=== PATIENT | female | born 1945 | race American Indian/Alaskan Native ===

== ENCOUNTER → 2024-09-11 | Outpatient (CLI) | payer MEDICARE, OTHER, SELFPAY ==
[2024-09-11 09:22] LABS: Basophils # (Auto) 0.1 Thou/mm3 (0.0-0.2); Basophils % (Auto) 1 % (0-2.5); Eosinophils # (Auto) 0.2 Thou/mm3 (0.0-0.5); Eosinophils % (Auto) 2 % (0-10); Hematocrit 35.3 % (36.0-46.0); Hemoglobin 11.3 g/dL (12.0-16.0); Immature Granulocytes % (Auto) 0 % (0-0); Immature Granulocytes Auto 0.02 Thou/mm3 (0.00-0.00); Lymphocytes # (Auto) 1.3 Thou/mm3 (1.0-4.8); Lymphocytes % (Auto) 18 % (10-50); Mean Corpuscular Hemoglobin 28.3 pg (25.0-35.0); Mean Corpuscular Volume 89 fL (80-100); Monocytes # (Auto) 0.6 Thou/mm3 (0.0-0.8); Monocytes % (Auto) 9 % (0-12); Neutrophils % (Auto) 70 % (37-80); Nucleated Red Blood Cell % 0 /100 WBC (0); Platelet Count 212 Thou/mm3 (140-440); RDW Standard Deviation 41.1 fL (36.4-46.3); Red Blood Count 3.99 Miln/mm3 (4.00-5.20); White Blood Count 7.2 Thou/mm3 (3.6-11.0)
[2024-09-11 09:29] LABS: Alanine Aminotransferase 9 U/L (10-49); Albumin, Serum 4.2 gm/dL (3.4-4.8); Albumin/Globulin Ratio 1.8 (1.2-2.2); Alkaline Phosphatase 70 U/L (46-116); Anion Gap 9 (7-16); Aspartate Amino Transferase 20 U/L (0-34); BUN/Creatinine Ratio 19 Ratio (12-20); Bilirubin,Total 0.6 mg/dL (0.3-1.2); Blood Urea Nitrogen 15 mg/dL (9-23); Calcium 9.5 mg/dL (8.3-10.6); Calcium (Corrected) 9.5 mg/dL (8.5-10.1); Carbon Dioxide 28.5 mMol/L (20.0-31.0); Chloride 106 mMol/L (98-107); Creatinine (Component) 0.8 mg/dL (0.6-1.3); Globulin 2.3 gm/dL (2.3-3.5); Glucose 136 mg/dL (74-106); Osmolality,Calculated 287 (275-295); Potassium 4.4 mMol/L (3.4-5.1); Sodium 143 mMol/L (136-145); Total Protein 6.5 gm/dL (5.7-8.2); eGFR > 60 See Note
[2024-09-11 09:31] LABS: Carcinoembryonic Antigen 4.1 ng/mL (0.0-5.0)
== END | disposition home or self-care (01) ==
LOC: SCTO 08:11
PROVIDERS: PCP Physician Assistant; Referring Provider Nurse Practitioner Family; Visit Provider Nurse Practitioner Family
DX: C34.11 Malignant neoplasm of upper lobe, right bronchus or lung (principal)
CPT/HCPCS: 36415; 80053; 82378; 85025

== ENCOUNTER 2024-09-13 14:54 | Outpatient (RCR) | payer MEDICARE, OTHER, SELFPAY ==
--- NOTE | 2024-09-14 09:31 | CTCFLWUP_ITS ---
Patient: MULU GRIMES : 1945 Page 2 of 2 FOLLOW UP NOTE DATE OF SERVICE: 09/13/2024 NAME: MULU GRIMES ACCOUNT: [id number] : 1945 AGE: 79 INTERVAL HISTORY: ONCOLOGY HISTORY: DIAGNOSIS: Malignant neoplasm of upper lobe, right bronchus or lung [ICD10] C34.11 DATE OF DIAGNOSIS: STAGE/TNM: TREATMENT HISTORY: Care?Plan Start?Date Cycle Day Intent HISTORY OF PRESENT ILLNESS: Mulu Grimes is a 79-year-old ENG speaking female has the following oncology history. 09/16/2017: Urine cytology was highly suspicious for malignancy, compatible with urothelial origin. 10/18/2017: Bladder biopsy showed papillary urothelial neoplasm. 10/20/2017: Transurethral resection of the bladder tumor showed papillary urothelial carcinoma. Patient was treated with BCG. 03/08/2019: CT scan of the right shoulder without contrast patient was planning on having revision arthroplasty in [place]. A CT scan repeated prior to the procedure showed a lung nodule in the right lung. I do not have the report of the CT scan. 05/03/2020: PET CT scan? 05/22/2020: Patient was seen by Dr. Ramirez Chahal, radiation oncologist in consultation. 06/04/2020: CT-guided biopsy of the right upper lobe lung nodule? 09/04/2020: Ms. Grimes had right upper lobe lobectomy? 12/18/2020: CT scan of the chest with IV contrast? 07/02/2021: CT scan of the chest with IV contrast? 08/27/2022: CT scan of the chest without contrast? 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 amlodipine - 5 mg 1 tab Twice a Day 2. atorvastatin - 10 mg Daily 3. carvedilol - 25 mg 1 tab As directed 4. carvedilol - 12.5 mg 1 tab Twice a Day 5. clopidogrel - 75 mg Daily 6. hydrochlorothiazide - 25 mg 1 tab Each Day 7. lisinopril - 40 mg 1 tab Twice a Day 8. metformin - 1,000 mg Twice a Day 9. nitroglycerin - 0.4 mg As directed 10. Ocuvite - 1 tab Daily 11. Tylenol Arthritis - 650 mg 1 tab As directed 12. Vitamin D2 - 25,000 unit 1 Capsule Weekly Medications Last Reconciled by Leigh Omer MA on 09/13/2024 ALLERGIES: ASPIRIN/CAFFEINE; PENICILLAMINE; naproxen; sulfasalazine; gabapentin; celecoxib; TRIMETHOP RIM; milk; bee wasp; rimegepant sulfate; rimegepant sulfate; VANCOMYCIN HCL; VANCOMYCIN HCL; warfarin REVIEW OF SYSTEMS: A complete 14-point review of systems was performed and is negative except as noted in interval histo ry. PHYSICAL EXAMINATION: VITAL SIGNS: Temperature?97.6, B/P?166/71, Oxygen?Saturation?95% Weight?179?lbs PAIN: 0 - No pain ECOG Performance Status: 0 - Asymptomatic and fully active GENERAL APPEARANCE: Appears well, in no apparent distress, appropriately interactive. HEENT: Normocephalic, no temporal wasting, normal conjunctiva, no scleral icterus, normal hearing, li ps without lesions, neck normal range of motion. CARDIOVASCULAR: Not assessed. PULMONARY: Normal respiratory effort, no respiratory distress or use of accessory muscles, speaking i n full sentences, no tachypnea. EXTREMITIES: No pedal edema or cyanosis. SKIN: Normal skin appearance. NEUROLOGIC: Alert and oriented x4. PSHYCHIATRIC: Appropriate affect, mood normal, behavior normal, intact thought and speech. 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 S/p r ight upper lobe lobectomy on 09/04/2020. 05/30/[address] scan had shown multiple hypermetabolic areas in the liver which may be technical, re commend CT scan abdomen pelvis post intravenous contrast with specific attention to the liver. CT sca n 06/26/2024 reviewed and showed no liver lesions. Common bile duct 15 mm. Patient have a history of gallbladder removal. No clinical signs or symptoms Patient is doing clinically well Will do another CT scan in 6 months COPD. Stopped smoking in 2002. ? Coronary artery disease status post coronary artery stent placement x2. ? History of papillary urothelial carcinoma treated with TURBT as well as BCG. ? History of right shoulder surgery in the past. Currently patient is planning on having repeat surg misty. #2 anemia Patient have progressive anemia Not clear history regarding stools Patient denies all signs and symptoms Will check for causes of anemia including bleeding from the colon or upper GI tract CBC CMP iron panel CEA ferritin CT scan chest abdomen pelvis GI referral for colonoscopy and EGD RETURN TO CLINIC: 4 to 6 weeks for review of labs BILLING AND COMPLIANCE: I reviewed external records from providers outside my specialty as summarized above. I spent a total of 50 minutes on this patient?s care on the day of their visit excluding time spent related to any bi lled procedures. This time includes time spent with the patient as well as time spent documenting in the medical record, reviewing patients records and tests, obtaining history, placing orders, communi cating with other healthcare professionals, counseling the patient, family or caregiver, and/or care coordination for the diagnoses above. Electronically Signed by: Jake Cope MD T: 9:29 AM CC: PCP: Andrés Barber Referring: Andrés Barber This document was completed utilizing speech recognition software. Grammatical errors, random word in sertions, pronoun errors, and incomplete sentences are an occasional consequence of this system due t o software limitations, ambient noise, and hardware issues. Any formal questions or concerns about th e content, text or information contained within the body of this dictation should be directly address ed to the provider for clarification.
== END 2024-09-22 23:59 | disposition home or self-care (01) ==
LOC: SCTC 14:54
PROVIDERS: PCP Physician Assistant; Referring Provider Physician Assistant; Visit Provider Internal Medicine Hematology & Oncology
DX: C34.11 Malignant neoplasm of upper lobe, right bronchus or lung (principal); Z90.2 Acquired absence of lung [part of]; J44.9 Chronic obstructive pulmonary disease, unspecified; Z87.891 Personal history of nicotine dependence; I25.10 Atherosclerotic heart disease of native coronary artery without angina pectoris; Z95.5 Presence of coronary angioplasty implant and graft; Z85.51 Personal history of malignant neoplasm of bladder; D64.9 Anemia, unspecified
CPT/HCPCS: 99212; G0463

== ENCOUNTER → 2024-09-14 | Outpatient (CLI) | payer MEDICARE, OTHER, SELFPAY ==
[2024-09-14 08:45] LABS: Basophils # (Auto) 0.1 Thou/mm3 (0.0-0.2); Basophils % (Auto) 1 % (0-2.5); Eosinophils # (Auto) 0.2 Thou/mm3 (0.0-0.5); Eosinophils % (Auto) 3 % (0-10); Hematocrit 33.7 % (36.0-46.0); Hemoglobin 10.9 g/dL (12.0-16.0); Immature Granulocytes % (Auto) 0 % (0-0); Immature Granulocytes Auto 0.02 Thou/mm3 (0.00-0.00); Immature Reticulocyte Fraction 9.5 % (3.0-15.9); Lymphocytes # (Auto) 1.4 Thou/mm3 (1.0-4.8); Lymphocytes % (Auto) 21 % (10-50); Mean Corpuscular HGB Conc 32.3 g/dl (31.0-37.0); Mean Corpuscular Hemoglobin 28.2 pg (25.0-35.0); Mean Corpuscular Volume 87 fL (80-100); Monocytes # (Auto) 0.6 Thou/mm3 (0.0-0.8); Monocytes % (Auto) 9 % (0-12); Neutrophils # (Auto) 4.4 Thou/mm3 (1.8-7.7); Neutrophils % (Auto) 67 % (37-80); Nucleated Red Blood Cell % 0 /100 WBC (0); Platelet Count 225 Thou/mm3 (140-440); RDW Standard Deviation 40.3 fL (36.4-46.3); Red Blood Count 3.86 Miln/mm3 (4.00-5.20); Reticulocyte % (Auto) 1.4 % (0.5-1.5); Reticulocyte Absolute Auto 53.3 Biln/L (25.0-75.0); Reticulocyte Hgb Content 32.1 pg (28.0-35.0); White Blood Count 6.6 Thou/mm3 (3.6-11.0)
[2024-09-14 08:50] LABS: Carcinoembryonic Antigen 3.7 ng/mL (0.0-5.0); Folate 17.04 ng/mL (>5.38); Vitamin B12 378 pg/mL (211-911)
[2024-09-14 09:04] LABS: Alanine Aminotransferase < 7 U/L (10-49); Albumin, Serum 4.5 gm/dL (3.4-4.8); Alkaline Phosphatase 68 U/L (46-116); Anion Gap 9 (7-16); Aspartate Amino Transferase 16 U/L (0-34); BUN/Creatinine Ratio 18 Ratio (12-20); Bilirubin,Total 0.6 mg/dL (0.3-1.2); Blood Urea Nitrogen 16 mg/dL (9-23); Calcium 9.5 mg/dL (8.3-10.6); Calcium (Corrected) 9.5 mg/dL (8.5-10.1); Chloride 102 mMol/L (98-107); Creatinine (Component) 0.9 mg/dL (0.6-1.3); Globulin 2.2 gm/dL (2.3-3.5); Glucose 124 mg/dL (74-106); LDH (Lactate Dehydrogenase) 194 U/L (120-246); Osmolality,Calculated 283 (275-295); Potassium 3.9 mMol/L (3.4-5.1); Sodium 141 mMol/L (136-145); Total Protein 6.7 gm/dL (5.7-8.2); eGFR > 60 See Note
[2024-09-14 09:42] LABS: Ferritin 10 ng/mL (7.3-270.7); Total Iron Binding Capacity 400 mcg/dL (250-425)
[2024-09-14 09:53] LABS: Iron 53 mcg/dL (50-170); Percent Iron Saturation 13 % (20-55); Unsaturated Iron Binding 347 (225-295)
[2024-09-21 06:37] LABS: Haptoglobin* 145 mg/dL (43-212)
== END | disposition home or self-care (01) ==
LOC: SCTO 07:35
PROVIDERS: PCP Physician Assistant; Referring Provider Internal Medicine Hematology & Oncology; Visit Provider Internal Medicine Hematology & Oncology
DX: C34.11 Malignant neoplasm of upper lobe, right bronchus or lung (principal)
CPT/HCPCS: 36415; 80053; 82378; 82607; 82728; 82746; 83010; 83540; 83550; 83615; 85025; 85046

== ENCOUNTER → 2024-10-12 | Outpatient (CLI) | payer MEDICARE, OTHER, SELFPAY ==
--- NOTE | 2024-10-12 13:30 | XR_ITS ---
Examination: CT chest with intravenous contrast CT abdomen with intravenous contrast CT pelvis with intravenous contrast 2-D coronal and sagittal reconstructions Time of exam: October 12, 2024 1359 hours Comparison June 26, 2024, PET CT scan May 30, 2024 INDICATIONS: Diagnosis right lung cancer 2020 restaging CTDI: vol (mGy) : 14.6 DLP: (mGycm): 1028 Technique: Multiple axial images of the chest, abdomen and pelvis with intravenous contrast, 3.0 mm slice thickness. Images obtained post intravenous injection Isovue 370 60 cc. 2-D sagittal and coronal reconstructions. Low dose protocols were performed. One or more of the following dose reduction techniques were used; automated exposure control, adjustment of the mA and/or KV according to patient size, use of iterative reconstruction technique. Findings: Thoracic aortic calcification no aneurysmal dilatation No pulmonary artery filling defects No interval paratracheal tracheobronchial or bronchopulmonary adenopathy Interval 6 mm pulmonary nodule right upper lobe image 134 No pneumonia or pulmonary edema No interval liver or splenic lesions 15 mm dimension common bile duct No pancreatic mass No hydronephrosis Heavy abdominal aortic calcification No bowel obstruction Small bowel ileus Urinary bladder intact Severe osteopenia with advanced diffuse thoracic lumbar degenerative disc disease IMPRESSION: New 6 mm pulmonary nodule right upper lobe, with this study as baseline recommend continued 6 month follow-up CT chest without contrast No interval abdominal or pelvic lymphadenopathy Dilated common bile duct, recommend hepatobiliary sonography follow-up
== END | disposition home or self-care (01) ==
LOC: CCTX 12:55
PROVIDERS: Referring Provider Internal Medicine Hematology & Oncology; Visit Provider Internal Medicine Hematology & Oncology
DX: R91.1 Solitary pulmonary nodule (principal); K83.8 Other specified diseases of biliary tract; C34.11 Malignant neoplasm of upper lobe, right bronchus or lung
CPT/HCPCS: 71260; 74177; A4649; Q9967

== ENCOUNTER → 2024-11-21 | Outpatient (CLI) | payer MEDICARE, OTHER, SELFPAY ==
[2024-11-21 08:31] LABS: Basophils # (Auto) 0.1 Thou/mm3 (0.0-0.2); Basophils % (Auto) 1 % (0-2.5); Eosinophils # (Auto) 0.2 Thou/mm3 (0.0-0.5); Eosinophils % (Auto) 2 % (0-10); Hematocrit 35.2 % (36.0-46.0); Hemoglobin 11.5 g/dL (12.0-16.0); Immature Granulocytes % (Auto) 0 % (0-0); Immature Granulocytes Auto 0.02 Thou/mm3 (0.00-0.00); Immature Reticulocyte Fraction 7.7 % (3.0-15.9); Lymphocytes # (Auto) 1.4 Thou/mm3 (1.0-4.8); Lymphocytes % (Auto) 17 % (10-50); Mean Corpuscular HGB Conc 32.7 g/dl (31.0-37.0); Mean Corpuscular Hemoglobin 28.3 pg (25.0-35.0); Mean Corpuscular Volume 87 fL (80-100); Monocytes # (Auto) 0.7 Thou/mm3 (0.0-0.8); Monocytes % (Auto) 8 % (0-12); Neutrophils % (Auto) 72 % (37-80); Nucleated Red Blood Cell % 0 /100 WBC (0); Platelet Count 267 Thou/mm3 (140-440); Red Blood Count 4.06 Miln/mm3 (4.00-5.20); Reticulocyte % (Auto) 1.1 % (0.5-1.5); Reticulocyte Absolute Auto 45.9 Biln/L (25.0-75.0); Reticulocyte Hgb Content 32.3 pg (28.0-35.0); White Blood Count 8.3 Thou/mm3 (3.6-11.0)
[2024-11-21 08:54] LABS: Ferritin 8 ng/mL (7.3-270.7); Iron 77 mcg/dL (50-170); Percent Iron Saturation 18 % (20-55); Total Iron Binding Capacity 407 mcg/dL (250-425); Unsaturated Iron Binding 330 (225-295)
[2024-11-21 09:16] LABS: Alanine Aminotransferase 10 U/L (10-49); Albumin, Serum 4.4 gm/dL (3.4-4.8); Albumin/Globulin Ratio 1.9 (1.2-2.2); Alkaline Phosphatase 66 U/L (46-116); Anion Gap 10 (7-16); Aspartate Amino Transferase 19 U/L (0-34); BUN/Creatinine Ratio 18 Ratio (12-20); Bilirubin,Total 0.7 mg/dL (0.3-1.2); Blood Urea Nitrogen 14 mg/dL (9-23); Calcium 9.3 mg/dL (8.3-10.6); Calcium (Corrected) 9.3 mg/dL (8.5-10.1); Carbon Dioxide 28.8 mMol/L (20.0-31.0); Chloride 102 mMol/L (98-107); Creatinine (Component) 0.8 mg/dL (0.6-1.3); Globulin 2.3 gm/dL (2.3-3.5); Glucose 130 mg/dL (74-106); LDH (Lactate Dehydrogenase) 195 U/L (120-246); Osmolality,Calculated 283 (275-295); Sodium 141 mMol/L (136-145); Total Protein 6.7 gm/dL (5.7-8.2); eGFR > 60 See Note
[2024-11-21 09:18] LABS: Carcinoembryonic Antigen 3.6 ng/mL (0.0-5.0); Folate 15.22 ng/mL (>5.38); Vitamin B12 339 pg/mL (211-911)
[2024-11-27 07:13] LABS: Haptoglobin* 137 mg/dL (43-212)
== END | disposition home or self-care (01) ==
PROVIDERS: PCP Physician Assistant; Referring Provider Internal Medicine Hematology & Oncology; Visit Provider Internal Medicine Hematology & Oncology
DX: C34.11 Malignant neoplasm of upper lobe, right bronchus or lung (principal)
CPT/HCPCS: 36415; 80053; 82378; 82607; 82728; 82746; 83010; 83540; 83550; 83615; 85025; 85046

== ENCOUNTER 2024-12-18 13:00 | Outpatient (RCR) | payer MEDICARE, OTHER, SELFPAY ==
--- NOTE | 2024-11-28 10:12 | CTCFLWUP_ITS ---
Patient: MULU GRIMES : 1945 Page 5 of 6 FOLLOW UP NOTE DATE OF SERVICE: 11/27/2024 NAME: MULU GRIMES ACCOUNT: [id number] : 1945 AGE: 79 INTERVAL HISTORY: ONCOLOGY HISTORY: DIAGNOSIS: Malignant neoplasm of upper lobe, right bronchus or lung [ICD10] C34.11 DATE OF DIAGNOSIS: STAGE/TNM: TREATMENT HISTORY: Care?Plan Start?Date Cycle Day Intent VENOfer?200mg?IV?wkly?for?10?weeks 11/27/2024 1 70 Maintenance HISTORY OF PRESENT ILLNESS: Mulu Grimes is a 79-year-old ENG speaking female has the following oncology history. 09/16/2017: Urine cytology was highly suspicious for malignancy, compatible with urothelial origin. 10/18/2017: Bladder biopsy showed papillary urothelial neoplasm. 10/20/2017: Transurethral resection of the bladder tumor showed papillary urothelial carcinoma. Patient was treated with BCG. 03/08/2019: CT scan of the right shoulder without contrast patient was planning on having revision arthroplasty in [place]. A CT scan repeated prior to the procedure showed a lung nodule in the right lung. I do not have the report of the CT scan. 05/03/2020: PET CT scan? 05/22/2020: Patient was seen by Dr. Ramirez Chahal, radiation oncologist in consultation. 06/04/2020: CT-guided biopsy of the right upper lobe lung nodule? 09/04/2020: Ms. Grimes had right upper lobe lobectomy? 12/18/2020: CT scan of the chest with IV contrast? 07/02/2021: CT scan of the chest with IV contrast? 08/27/2022: CT scan of the chest without contrast? 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 amlodipine - 5 mg 1 tab Twice a Day 2. atorvastatin - 10 mg Daily 3. carvedilol - 25 mg 1 tab As directed 4. carvedilol - 12.5 mg 1 tab Twice a Day 5. clopidogrel - 75 mg Daily 6. esomeprazole magnesium - 20 mg 1 tab twice Daily 7. hydrochlorothiazide - 25 mg 1 tab Each Day 8. lisinopril - 40 mg 1 tab Twice a Day 9. metformin - 1,000 mg Twice a Day 10. nitroglycerin - 0.4 mg As directed 11. Ocuvite - 1 tab Daily 12. Tylenol Arthritis - 650 mg 1 tab As directed 13. Vitamin D2 - 25,000 unit 1 Capsule Weekly Medications Last Reconciled by Leigh Omer MA on 11/27/2024 ALLERGIES: ASPIRIN/CAFFEINE; PENICILLAMINE; naproxen; sulfasalazine; gabapentin; celecoxib; TRIMETHOPRIM; milk; bee wasp; rimegepant sulfate; rimegepant sulfate; VANCOMYCIN HCL; VANCOMYCIN HCL; warfarin REVIEW OF SYSTEMS: A complete 14-point review of systems was performed and is negative except as noted in interval history. PHYSICAL EXAMINATION: VITAL SIGNS: Temperature?97.9, B/P?197/76, Oxygen?Saturation?100% Weight?174?lbs PAIN: 0 - No pain ECOG Performance Status: 0 - Asymptomatic and fully active GENERAL APPEARANCE: Appears well, in no apparent distress, appropriately interactive. HEENT: Normocephalic, no temporal wasting, normal conjunctiva, no scleral icterus, normal hearing, lips without lesions, neck normal range of motion. CARDIOVASCULAR: Not assessed. PULMONARY: Normal respiratory effort, no respiratory distress or use of accessory muscles, speaking in full sentences, no tachypnea. EXTREMITIES: No pedal edema or cyanosis. SKIN: Normal skin appearance. NEUROLOGIC: Alert and oriented x4. PSHYCHIATRIC: Appropriate affect, mood normal, behavior normal, intact thought and speech. 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 S/p right upper lobe lobectomy on 09/04/2020. 05/30/[address] scan had shown multiple hypermetabolic areas in the liver which may be technical, recommend CT scan abdomen pelvis post intravenous contrast with specific attention to the liver. CT scan 06/26/2024 reviewed and showed no liver lesions. Common bile duct 15 mm. Patient have a history of gallbladder removal. No clinical signs or symptoms Patient is doing clinically well CT scan 6 mm pulm nodule in the right upper lobe and recommendation is to do it in 6 months that is in March 2025 COPD. Stopped smoking in 2002. ? Coronary artery disease status post coronary artery stent placement x2. ? History of papillary urothelial carcinoma treated with TURBT as well as BCG. ? History of right shoulder surgery in the past. Currently patient is planning on having repeat surgery. #2 anemia Patient have progressive anemia Not clear history regarding stools Patient denies all signs and symptoms Reviewed iron studies and shows ferritin of 8 and low normal B12 Advised patient to start taking multivitamin 1 daily Will start on IV iron as patient has chronic constipation and cannot tolerate oral iron ORDERS: Order # Description [id number] Comprehensive Metabolic Panel - 12 + CBC with Auto Diff + CEA [id number] Follow Up 3 Months RETURN TO CLINIC: 3 months after iron infusions are complete BILLING AND COMPLIANCE: I reviewed external records from providers outside my specialty as summarized above. I spent a total of 50 minutes on this patient?s care on the day of their visit excluding time spent related to any billed procedures. This time includes time spent with the patient as well as time spent documenting in the medical record, reviewing patients records and tests, obtaining history, placing orders, communicating with other healthcare professionals, counseling the patient, family or caregiver, and/or care coordination for the diagnoses above. Electronically Signed by: {Object.Sanct_ID*[email or web address]@M}, {Object.Sanct_ID*PnP.Suffix@U} D: {Object.Sanct_Date} T: {Object.Sanct_Time} CC: PCP: Andrés Barber Referring: Andrés Barber This document was completed utilizing speech recognition software. Grammatical errors, random word insertions, pronoun errors, and incomplete sentences are an occasional consequence of this system due to software limitations, ambient noise, and hardware issues. Any formal questions or concerns about the content, text or information contained within the body of this dictation should be directly addressed to the provider for clarification.
== END 2024-12-20 23:59 | disposition home or self-care (01) ==
LOC: SCTC 13:00
PROVIDERS: PCP Physician Assistant; Referring Provider Physician Assistant; Visit Provider Internal Medicine Hematology & Oncology
DX: D64.9 Anemia, unspecified (principal); K59.09 Other constipation; C34.11 Malignant neoplasm of upper lobe, right bronchus or lung; Z90.2 Acquired absence of lung [part of]
CPT/HCPCS: 96365; 96375; 99212; A4216; J1756; J3490; J7040; J7050; G0463

== ENCOUNTER → 2024-12-27 | Outpatient (CLI) | payer MEDICARE, OTHER, SELFPAY ==
[2024-12-27 08:37] LABS: Immature Reticulocyte Fraction 5.3 % (3.0-15.9); Reticulocyte % (Auto) 1.6 % (0.5-1.5); Reticulocyte Absolute Auto 63.6 Biln/L (25.0-75.0); Reticulocyte Hgb Content 34.4 pg (28.0-35.0)
[2024-12-27 08:42] LABS: Basophils # (Auto) 0.1 Thou/mm3 (0.0-0.2); Basophils % (Auto) 1 % (0-2.5); Eosinophils # (Auto) 0.1 Thou/mm3 (0.0-0.5); Eosinophils % (Auto) 1 % (0-10); Hematocrit 35.1 % (36.0-46.0); Hemoglobin 11.7 g/dL (12.0-16.0); Immature Granulocytes % (Auto) 0 % (0-0); Immature Granulocytes Auto 0.02 Thou/mm3 (0.00-0.00); Lymphocytes # (Auto) 1.6 Thou/mm3 (1.0-4.8); Lymphocytes % (Auto) 19 % (10-50); Mean Corpuscular HGB Conc 33.3 g/dl (31.0-37.0); Mean Corpuscular Hemoglobin 28.9 pg (25.0-35.0); Mean Corpuscular Volume 87 fL (80-100); Monocytes # (Auto) 0.6 Thou/mm3 (0.0-0.8); Monocytes % (Auto) 7 % (0-12); Neutrophils % (Auto) 71 % (37-80); Nucleated Red Blood Cell % 0 /100 WBC (0); Platelet Count 266 Thou/mm3 (140-440); RDW Standard Deviation 41.8 fL (36.4-46.3); Red Blood Count 4.05 Miln/mm3 (4.00-5.20); White Blood Count 8.4 Thou/mm3 (3.6-11.0)
[2024-12-27 08:47] LABS: LDH (Lactate Dehydrogenase) 191 U/L (120-246)
[2024-12-27 08:49] LABS: Carcinoembryonic Antigen 3.6 ng/mL (0.0-5.0)
[2024-12-27 08:50] LABS: Ferritin 136 ng/mL (7.3-270.7); Iron 84 mcg/dL (50-170); Percent Iron Saturation 24 % (20-55); Total Iron Binding Capacity 349 mcg/dL (250-425); Unsaturated Iron Binding 265 (225-295)
[2024-12-27 08:52] LABS: Folate 12.23 ng/mL (>5.38); Vitamin B12 979 pg/mL (211-911)
[2024-12-27 09:12] LABS: Alanine Aminotransferase 9 U/L (10-49); Albumin, Serum 4.7 gm/dL (3.4-4.8); Alkaline Phosphatase 56 U/L (46-116); Anion Gap 11 (7-16); Aspartate Amino Transferase 18 U/L (0-34); BUN/Creatinine Ratio 16 Ratio (12-20); Blood Urea Nitrogen 14 mg/dL (9-23); Calcium 9.2 mg/dL (8.3-10.6); Calcium (Corrected) 9.2 mg/dL (8.5-10.1); Carbon Dioxide 29.4 mMol/L (20.0-31.0); Chloride 104 mMol/L (98-107); Creatinine (Component) 0.9 mg/dL (0.6-1.3); Globulin 2.4 gm/dL (2.3-3.5); Glucose 125 mg/dL (74-106); Osmolality,Calculated 288 (275-295); Potassium 3.8 mMol/L (3.4-5.1); Sodium 144 mMol/L (136-145); Total Protein 7.1 gm/dL (5.7-8.2); eGFR > 60 See Note
[2025-01-02 06:42] LABS: Haptoglobin* 176 mg/dL (43-212)
== END | disposition home or self-care (01) ==
LOC: SCTO 07:36
PROVIDERS: PCP Physician Assistant; Referring Provider Internal Medicine Hematology & Oncology; Visit Provider Internal Medicine Hematology & Oncology
DX: C34.11 Malignant neoplasm of upper lobe, right bronchus or lung (principal); D50.9 Iron deficiency anemia, unspecified
CPT/HCPCS: 36415; 80053; 82378; 82607; 82728; 82746; 83010; 83540; 83550; 83615; 85025; 85046

== ENCOUNTER 2025-01-08 13:39 | Outpatient (RCR) | payer MEDICARE, OTHER, SELFPAY | END 2025-01-20 23:59 | disposition home or self-care (01) | LOC: SCTC 13:39 | PROVIDERS: PCP Physician Assistant; Referring Provider Physician Assistant; Visit Provider Internal Medicine Hematology & Oncology | DX: D64.9 Anemia, unspecified (principal); C34.11 Malignant neoplasm of upper lobe, right bronchus or lung; Z90.2 Acquired absence of lung [part of]; J44.9 Chronic obstructive pulmonary disease, unspecified; Z87.891 Personal history of nicotine dependence | CPT/HCPCS: 36415; 96365; 96375; A4216; J1756; J2919; J3490; J7040; J7050 ==

== ENCOUNTER 2025-02-19 12:47 | Outpatient (RCR) | payer MEDICARE, OTHER, SELFPAY | END 2025-02-19 23:59 | disposition home or self-care (01) | LOC: SCTC 12:47 | PROVIDERS: PCP Physician Assistant; Referring Provider Physician Assistant; Visit Provider Internal Medicine Hematology & Oncology | DX: D64.9 Anemia, unspecified (principal); C34.11 Malignant neoplasm of upper lobe, right bronchus or lung; J44.9 Chronic obstructive pulmonary disease, unspecified; Z87.891 Personal history of nicotine dependence; I25.10 Atherosclerotic heart disease of native coronary artery without angina pectoris; Z95.5 Presence of coronary angioplasty implant and graft; Z85.51 Personal history of malignant neoplasm of bladder; Z90.2 Acquired absence of lung [part of]; Z90.49 Acquired absence of other specified parts of digestive tract; R91.1 Solitary pulmonary nodule | CPT/HCPCS: 96365; 96375; A4216; J1756; J3490; J7040; J7050 ==

== ENCOUNTER → 2025-02-22 | Outpatient (CLI) | payer MEDICARE, OTHER, SELFPAY ==
[2025-02-22 10:38] LABS: Basophils # (Auto) 0.1 Thou/mm3 (0.0-0.2); Basophils % (Auto) 1 % (0-2.5); Eosinophils # (Auto) 0.2 Thou/mm3 (0.0-0.5); Eosinophils % (Auto) 3 % (0-10); Hematocrit 33.9 % (36.0-46.0); Hemoglobin 11.6 g/dL (12.0-16.0); Immature Granulocytes Auto 0.02 Thou/mm3 (0.00-0.00); Lymphocytes # (Auto) 1.4 Thou/mm3 (1.0-4.8); Lymphocytes % (Auto) 19 % (10-50); Mean Corpuscular HGB Conc 34.2 g/dl (31.0-37.0); Mean Corpuscular Hemoglobin 30.9 pg (25.0-35.0); Mean Corpuscular Volume 90 fL (80-100); Monocytes # (Auto) 0.7 Thou/mm3 (0.0-0.8); Monocytes % (Auto) 9 % (0-12); Neutrophils # (Auto) 5.2 Thou/mm3 (1.8-7.7); Neutrophils % (Auto) 68 % (37-80); Nucleated Red Blood Cell # 0.00 Thou/mm3 (0.00-0.00); Nucleated Red Blood Cell % 0 /100 WBC (0); Platelet Count 222 Thou/mm3 (140-440); RDW Standard Deviation 44.6 fL (36.4-46.3); Red Blood Count 3.75 Miln/mm3 (4.00-5.20); White Blood Count 7.7 Thou/mm3 (3.6-11.0)
[2025-02-22 10:56] LABS: Carcinoembryonic Antigen 3.5 ng/mL (0.0-5.0)
[2025-02-22 10:59] LABS: Alanine Aminotransferase 11 U/L (10-49); Albumin, Serum 4.1 gm/dL (3.4-4.8); Albumin/Globulin Ratio 1.8 (1.2-2.2); Alkaline Phosphatase 49 U/L (46-116); Anion Gap 8 (7-16); Aspartate Amino Transferase 17 U/L (0-34); BUN/Creatinine Ratio 23 Ratio (12-20); Bilirubin,Total 0.7 mg/dL (0.3-1.2); Blood Urea Nitrogen 18 mg/dL (9-23); Calcium 9.0 mg/dL (8.3-10.6); Calcium (Corrected) 9.0 mg/dL (8.5-10.1); Carbon Dioxide 27.8 mMol/L (20.0-31.0); Chloride 107 mMol/L (98-107); Creatinine (Component) 0.8 mg/dL (0.6-1.3); Globulin 2.3 gm/dL (2.3-3.5); Glucose 120 mg/dL (74-106); Osmolality,Calculated 287 (275-295); Potassium 3.9 mMol/L (3.4-5.1); Sodium 143 mMol/L (136-145); Total Protein 6.4 gm/dL (5.7-8.2); eGFR > 60 See Note
== END | disposition home or self-care (01) ==
LOC: SCTO 08:45
PROVIDERS: PCP Physician Assistant; Referring Provider Internal Medicine Hematology & Oncology; Visit Provider Internal Medicine Hematology & Oncology
DX: C34.11 Malignant neoplasm of upper lobe, right bronchus or lung (principal); D50.9 Iron deficiency anemia, unspecified
CPT/HCPCS: 36415; 80053; 82378; 85025

== ENCOUNTER 2025-02-26 10:58 | Outpatient (RCR) | payer MEDICARE, OTHER, SELFPAY ==
--- NOTE | 2025-02-27 08:16 | CTCFLWUP_ITS ---
Patient: MULU GRIMES : 1945 Page 6 of 7 FOLLOW UP NOTE DATE OF SERVICE: 02/26/2025 NAME: MULU GRIMES ACCOUNT: [id number] : 1945 AGE: 79 INTERVAL HISTORY: Patient with hx of lung cancer s/p lobectomy and hx of urothelial cancer is here for follow up on ct scan . complain of pain in her neck. Mulu, a patient with degenerative disc .patient also have iron deficiency and is feeling better since infusion of iron . ONCOLOGY HISTORY: DIAGNOSIS: Malignant neoplasm of upper lobe, right bronchus or lung [ICD10] C34.11 DATE OF DIAGNOSIS: 05/03/2020 STAGE/TNM: [id number] TREATMENT HISTORY: Care?Plan Start?Date Cycle Day Intent VENOfer?200mg?IV?wkly?for?10?weeks 12/11/2024 1 70 Maintenance HISTORY OF PRESENT ILLNESS: Mulu Grimes is a 79-year-old ENG speaking female has the following oncology history. 09/16/2017: Urine cytology was highly suspicious for malignancy, compatible with urothelial origin. 10/18/2017: Bladder biopsy showed papillary urothelial neoplasm. 10/20/2017: Transurethral resection of the bladder tumor showed papillary urothelial carcinoma. Patient was treated with BCG. 03/08/2019: CT scan of the right shoulder without contrast patient was planning on having revision arthroplasty in [place]. A CT scan repeated prior to the procedure showed a lung nodule in the right lung. I do not have the report of the CT scan. 05/03/2020: PET CT scan? 05/22/2020: Patient was seen by Dr. Ramirez Chahal, radiation oncologist in consultation. 06/04/2020: CT-guided biopsy of the right upper lobe lung nodule? 09/04/2020: Ms. Grimes had right upper lobe lobectomy? 12/18/2020: CT scan of the chest with IV contrast? 07/02/2021: CT scan of the chest with IV contrast? 08/27/2022: CT scan of the chest without contrast? 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 amlodipine - 5 mg 1 tab Twice a Day 2. atorvastatin - 10 mg Daily 3. carvedilol - 25 mg 1 tab As directed 4. carvedilol - 12.5 mg 1 tab Twice a Day 5. clopidogrel - 75 mg Daily 6. esomeprazole magnesium - 20 mg 1 tab twice Daily 7. hydrochlorothiazide - 25 mg 1 tab Each Day 8. lisinopril - 40 mg 1 tab Twice a Day 9. metformin - 1,000 mg Twice a Day 10. nitroglycerin - 0.4 mg As directed 11. Ocuvite - 1 tab Daily 12. Tylenol Arthritis - 650 mg 1 tab As directed 13. Vitamin B12 - 2,500 mcg 1 tab Daily 14. Vitamin D2 - 25,000 unit 1 Capsule Weekly Medications Last Reconciled by Maria C James MA on 02/26/2025 ALLERGIES: ASPIRIN/CAFFEINE; PENICILLAMINE; naproxen; sulfasalazine; gabapentin; celecoxib; TRIMETHOPRIM; milk; bee wasp; rimegepant sulfate; rimegepant sulfate; VANCOMYCIN HCL; VANCOMYCIN HCL; warfarin REVIEW OF SYSTEMS: A complete 14-point review of systems was performed and is negative except as noted in interval history. PHYSICAL EXAMINATION: VITAL SIGNS: Temperature?98.2, B/P?145/75, Oxygen?Saturation?97% PAIN: 8 - Very severe pain ECOG Performance Status: 2 - Symptomatic; ambulatory; capable of self-care; >50% of waking hrs. not in bed GENERAL APPEARANCE: Appears well, in no apparent distress, appropriately interactive. HEENT: neck movements severely restricted CARDIOVASCULAR: Not assessed. PULMONARY: Normal respiratory effort, no respiratory distress or use of accessory muscles, speaking in full sentences, no tachypnea. EXTREMITIES: No pedal edema or cyanosis. SKIN: Normal skin appearance. NEUROLOGIC: Alert and oriented x4. PSHYCHIATRIC: Appropriate affect, mood normal, behavior normal, intact thought and speech. Walks with walker , LABORATORY DATA: I have personally reviewed and interpreted each of the patient?s relevant lab tests, abnormal findings are below: Date 12/27/24 02/22/25 ??WHITE?BLOOD?COUNT?(Thou/mm3) 8.4 7.7 ??RED?BLOOD?COUNT?(Miln/mm3) 4.05 3.75?L ??HEMOGLOBIN?(gm/dl) 11.7?L 11.6?L ??HEMATOCRIT?(%) 35.1?L 33.9?L ??PLATELET?COUNT?(Thou/mm3) 266 222 ??NEUTROPHILS?%,?AUTO?(%) 71 68 ??LYMPH?%,?AUTO?(%) 19 19 ??NEUTROPHILS,?AUTO?(Thou/mm3) 6.0 5.2 ??GLUCOSE,RANDOM?(mg/dL) ? 120?H ??BLOOD?UREA?NITROGEN?(mg/dL) ? 18 ??CREATININE?(mg/dL) ? 0.80 ??SODIUM?(mmol/L) ? 143 ??POTASSIUM?(mmol/L) ? 3.9 ??CHLORIDE?(mmol/L) ? 107 ??CrCl?(CandG)?(ml/min) ? 56.53 ??AST/SGOT?(Unit/L) ? 17 ??ALT/SGPT?(Unit/L) ? 11 ??ALKALINE?PHOSPHATASE?(Unit/L) ? 49 ??BILIRUBIN,?TOTAL?(mg/dL) ? 0.7 ??PROTEIN?TOTAL?(gm/dl) ? 6.4 ??ALBUMIN,?SERUM?(gm/dl) ? 4.1 ??GLOBULIN?(gm/dl) ? 2.3 ??ALBUMIN/GLOBULIN?RATIO ? 1.8 ??CALCIUM,?SERUM?(mg/dL) ? 9.0 ??CALCIUM?SERUM?(CORRECTED)?(mg/dL) ? 9.0 ??CEA?(O*)?(ng/ml) ? 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 S/p right upper lobe lobectomy on 09/04/2020. 05/30/[address] scan had shown multiple hypermetabolic areas in the liver which may be technical, recommend CT scan abdomen pelvis post intravenous contrast with specific attention to the liver. CT scan 06/26/2024 reviewed and showed no liver lesions. Common bile duct 15 mm. Patient have a history of gallbladder removal. No clinical signs or symptoms Patient is doing clinically well CT scan 6 mm pulm nodule in the right upper lobe and recommendation is to do it in 6 months that is in March 2025 COPD. Stopped smoking in 2002. ? Coronary artery disease status post coronary artery stent placement x2. ? History of papillary urothelial carcinoma treated with TURBT as well as BCG. ? History of right shoulder surgery in the past. Currently patient is planning on having repeat surgery. 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 We also discussed the option of no treatment and the possibility of clinical trial participation, if applicable. All questions were addressed, and they demonstrated understanding. They provided informed consent to proceed with the proposed plan of care. BILLING AND COMPLIANCE: I reviewed external records from providers outside my specialty as summarized above. I spent a total of 50 minutes on this patient?s care on the day of their visit excluding time spent related to any billed procedures. This time includes time spent with the patient as well as time spent documenting in the medical record, reviewing patients records and tests, obtaining history, placing orders, communicating with other healthcare professionals, counseling the patient, family or caregiver, and/or care coordination for the diagnoses above. Electronically Signed by: {Object.Sanct_ID*[email or web address]@M}, {Object.Sanct_ID*PnP.Suffix@U} D: {Object.Sanct_Date} T: {Object.Sanct_Time} CC: PCP: Andrés Barber Referring: Andrés Barber This document was completed utilizing speech recognition software. Grammatical errors, random word insertions, pronoun errors, and incomplete sentences are an occasional consequence of this system due to software limitations, ambient noise, and hardware issues. Any formal questions or concerns about the content, text or information contained within the body of this dictation should be directly addressed to the provider for clarification.
== END 2025-03-22 23:59 | disposition home or self-care (01) ==
LOC: SCTC 10:58
PROVIDERS: PCP Physician Assistant; Referring Provider Physician Assistant; Visit Provider Internal Medicine Hematology & Oncology
DX: C34.11 Malignant neoplasm of upper lobe, right bronchus or lung (principal); Z90.2 Acquired absence of lung [part of]; I25.10 Atherosclerotic heart disease of native coronary artery without angina pectoris; Z95.5 Presence of coronary angioplasty implant and graft; D64.9 Anemia, unspecified; J44.9 Chronic obstructive pulmonary disease, unspecified; Z87.891 Personal history of nicotine dependence; R91.1 Solitary pulmonary nodule
CPT/HCPCS: 99212; G0463

== ENCOUNTER → 2025-03-21 | Outpatient (CLI) | payer MEDICARE, OTHER, SELFPAY ==
--- NOTE | 2025-03-21 14:30 | XR_ITS ---
Examination: CT chest with intravenous contrast CT abdomen with intravenous contrast CT pelvis with intravenous contrast 2-D coronal and sagittal reconstructions Time of exam: March 21, [address] chest abdomen pelvis October 12, 2024, PET/CT scan May 30, 2024 INDICATIONS: Diagnosis malignant neoplasm right upper lobe, 2020, gallbladder carcinoma diagnosis 2018 CTDI: vol (mGy) : 15.6 DLP: (mGycm): 1085 Technique: Multiple axial images of the chest, abdomen and pelvis with intravenous contrast, 3.0 mm slice thickness. Images obtained post intravenous injection Isovue 370 60 cc. 2-D sagittal and coronal reconstructions. Low dose protocols were performed. One or more of the following dose reduction techniques were used; automated exposure control, adjustment of the mA and/or KV according to patient size, use of iterative reconstruction technique. Findings: Thoracic aortic calcification no aneurysmal dilatation No pulmonary artery emboli on this non-CTA study No interval mediastinal lymphadenopathy Stable 5 mm pulmonary nodule right upper lobe compared with October 12, 2024, no new pulmonary nodules No pneumonia or pulmonary edema No visualized liver or splenic lesions Absent gallbladder Common bile duct 9 mm no stones No pancreatic mass Nodular thickening left adrenal gland again noted No hydronephrosis No interval abdominal or pelvic lymphadenopathy Heavy abdominal aortic calcification No bowel obstruction No diverticulitis Prominent osteopenia IMPRESSION: Stable 5 mm pulmonary nodule right upper lobe compared with October 12, 2024, no new pulmonary nodules No interval metastatic disease in the abdomen or pelvis
== END | disposition home or self-care (01) ==
PROVIDERS: PCP Physician Assistant; Referring Provider Internal Medicine Hematology & Oncology; Visit Provider Internal Medicine Hematology & Oncology
DX: R91.1 Solitary pulmonary nodule (principal); C34.11 Malignant neoplasm of upper lobe, right bronchus or lung
CPT/HCPCS: 71260; 74177; A4649; Q9967

== ENCOUNTER → 2025-05-24 | Outpatient (CLI) | payer MEDICARE, OTHER, SELFPAY ==
[2025-05-24 09:21] LABS: Basophils # (Auto) 0.1 Thou/mm3 (0.0-0.2); Basophils % (Auto) 1 % (0-2.5); Eosinophils # (Auto) 0.1 Thou/mm3 (0.0-0.5); Eosinophils % (Auto) 1 % (0-10); Hematocrit 36.7 % (36.0-46.0); Hemoglobin 12.1 g/dL (12.0-16.0); Immature Granulocytes Auto 0.03 Thou/mm3 (0.00-0.00); Lymphocytes # (Auto) 1.3 Thou/mm3 (1.0-4.8); Lymphocytes % (Auto) 15 % (10-50); Mean Corpuscular HGB Conc 33.0 g/dl (31.0-37.0); Mean Corpuscular Hemoglobin 31.3 pg (25.0-35.0); Mean Corpuscular Volume 95 fL (80-100); Monocytes # (Auto) 0.7 Thou/mm3 (0.0-0.8); Monocytes % (Auto) 8 % (0-12); Neutrophils # (Auto) 6.6 Thou/mm3 (1.8-7.7); Neutrophils % (Auto) 75 % (37-80); Nucleated Red Blood Cell # 0.00 Thou/mm3 (0.00-0.00); Nucleated Red Blood Cell % 0 /100 WBC (0); Platelet Count 207 Thou/mm3 (140-440); RDW Standard Deviation 40.8 fL (36.4-46.3); Red Blood Count 3.87 Miln/mm3 (4.00-5.20); White Blood Count 8.7 Thou/mm3 (3.6-11.0)
[2025-05-24 09:53] LABS: Alanine Aminotransferase 8 U/L (10-49); Albumin, Serum 4.3 gm/dL (3.4-4.8); Albumin/Globulin Ratio 2.0 (1.2-2.2); Alkaline Phosphatase 49 U/L (46-116); Anion Gap 13 (7-16); Aspartate Amino Transferase 16 U/L (0-34); BUN/Creatinine Ratio 19 Ratio (12-20); Bilirubin,Total 0.8 mg/dL (0.3-1.2); Blood Urea Nitrogen 15 mg/dL (9-23); Calcium 9.2 mg/dL (8.3-10.6); Calcium (Corrected) 9.2 mg/dL (8.5-10.1); Carbon Dioxide 26.3 mMol/L (20.0-31.0); Chloride 106 mMol/L (98-107); Creatinine (Component) 0.8 mg/dL (0.6-1.3); Globulin 2.1 gm/dL (2.3-3.5); Glucose 118 mg/dL (74-106); Osmolality,Calculated 290 (275-295); Potassium 3.8 mMol/L (3.4-5.1); Sodium 145 mMol/L (136-145); Total Protein 6.4 gm/dL (5.7-8.2); eGFR > 60 See Note
== END | disposition home or self-care (01) ==
LOC: SCTO 08:28
PROVIDERS: PCP Physician Assistant; Referring Provider Internal Medicine Hematology & Oncology; Visit Provider Internal Medicine Hematology & Oncology
DX: C34.11 Malignant neoplasm of upper lobe, right bronchus or lung (principal); D50.9 Iron deficiency anemia, unspecified
CPT/HCPCS: 36415; 80053; 85025

== ENCOUNTER 2025-05-29 11:22 | Outpatient (RCR) | payer MEDICARE, OTHER, SELFPAY ==
--- NOTE | 2025-06-03 21:39 | CTCFLWUP_ITS ---
Patient: MULU GRIMES : 1945 Page 5 of 7 FOLLOW UP NOTE DATE OF SERVICE: 05/29/2025 NAME: MULU GRIMES ACCOUNT: [id number] : 1945 AGE: 80 INTERVAL HISTORY: Patient with hx of lung cancer s/p lobectomy and hx of urothelial cancer is here for follow up on ct scan . At last visit patient was complaining pain in the neck. CT chest abdomen and pelvis was obtained which showed only 5 mm pulmonary nodules and no other metastatic disease. Mulu, a patient with degenerative disc .patient also have iron deficiency and is feeling better since infusion of iron . ONCOLOGY HISTORY:?[facility] Oncology Hx? DIAGNOSIS: Malignant neoplasm of upper lobe, right bronchus or lung [ICD10] C34.11 DATE OF DIAGNOSIS: 05/03/2020 STAGE/TNM: [id number] TREATMENT HISTORY: Care?Plan Start?Date Cycle Day Intent VENOfer?200mg?IV?wkly?for?10?weeks 12/11/2024 1 70 Maintenance HISTORY OF PRESENT ILLNESS: Mulu Grimes is a 80-year-old ENG speaking female has the following oncology history. 09/16/2017: Urine cytology was highly suspicious for malignancy, compatible with urothelial origin. 10/18/2017: Bladder biopsy showed papillary urothelial neoplasm. 10/20/2017: Transurethral resection of the bladder tumor showed papillary urothelial carcinoma. Patient was treated with BCG. 03/08/2019: CT scan of the right shoulder without contrast patient was planning on having revision arthroplasty in [place]. A CT scan repeated prior to the procedure showed a lung nodule in the right lung. I do not have the report of the CT scan. 05/03/2020: PET CT scan? 05/22/2020: Patient was seen by Dr. Ramirez Chahal, radiation oncologist in consultation. 06/04/2020: CT-guided biopsy of the right upper lobe lung nodule? 09/04/2020: Ms. Grimes had right upper lobe lobectomy? 12/18/2020: CT scan of the chest with IV contrast? 07/02/2021: CT scan of the chest with IV contrast? 08/27/2022: CT scan of the chest without contrast? OTHER MEDICAL HISTORY/CONDITIONS: FAMILY HISTORY: ?Clone Family Hx? 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 amlodipine - 5 mg 1 tab Twice a Day 2. atorvastatin - 10 mg Daily 3. carvedilol - 25 mg 1 tab As directed 4. carvedilol - 12.5 mg 1 tab Twice a Day 5. clopidogrel - 75 mg Daily 6. esomeprazole magnesium - 20 mg 1 tab twice Daily 7. hydrochlorothiazide - 25 mg 1 tab Each Day 8. lisinopril - 40 mg 1 tab Twice a Day 9. metformin - 1,000 mg Twice a Day 10. nitroglycerin - 0.4 mg As directed 11. Ocuvite - 1 tab Daily 12. Tylenol Arthritis - 650 mg 1 tab As directed 13. Vitamin B12 - 2,500 mcg 1 tab Daily 14. Vitamin D2 - 25,000 unit 1 Capsule Weekly?[facility] Meds? Medications Last Reconciled by Maria C Harvey MD on 05/30/2025 ALLERGIES: ASPIRIN/CAFFEINE; PENICILLAMINE; naproxen; sulfasalazine; gabapentin; celecoxib; TRIMETHOPRIM; milk; bee wasp; rimegepant sulfate; rimegepant sulfate; VANCOMYCIN HCL; VANCOMYCIN HCL; warfarin REVIEW OF SYSTEMS: A complete 14-point review of systems was performed and is negative except as noted in interval history. PHYSICAL EXAMINATION:?[facility] PE? VITAL SIGNS: Temperature?98.5, B/P?181/71, Oxygen?Saturation?98% Weight?165?lbs PAIN: 0 - No pain ECOG Performance Status: 0 - Asymptomatic and fully active GENERAL APPEARANCE: Appears well, in no apparent distress, appropriately interactive. HEENT: neck movements severely restricted CARDIOVASCULAR: Not assessed. PULMONARY: Normal respiratory effort, no respiratory distress or use of accessory muscles, speaking in full sentences, no tachypnea. EXTREMITIES: No pedal edema or cyanosis. SKIN: Normal skin appearance. NEUROLOGIC: Alert and oriented x4. PSHYCHIATRIC: Appropriate affect, mood normal, behavior normal, intact thought and speech. Walks with walker , LABORATORY DATA: I have personally reviewed and interpreted each of the patient?s relevant lab tests, abnormal findings are below: Date 02/22/25 05/24/25 ??WHITE?BLOOD?COUNT?(Thou/mm3) 7.7 8.7 ??RED?BLOOD?COUNT?(Miln/mm3) 3.75?L 3.87?L ??HEMOGLOBIN?(gm/dl) 11.6?L 12.1 ??HEMATOCRIT?(%) 33.9?L 36.7 ??PLATELET?COUNT?(Thou/mm3) 222 207 ??NEUTROPHILS?%,?AUTO?(%) 68 75 ??LYMPH?%,?AUTO?(%) 19 15 ??NEUTROPHILS,?AUTO?(Thou/mm3) 5.2 6.6 ??GLUCOSE,RANDOM?(mg/dL) ? 118?H ??BLOOD?UREA?NITROGEN?(mg/dL) ? 15 ??CREATININE?(mg/dL) ? 0.80 ??SODIUM?(mmol/L) ? 145 ??POTASSIUM?(mmol/L) ? 3.8 ??CHLORIDE?(mmol/L) ? 106 ??CrCl?(CandG)?(ml/min) ? 55.59 ??AST/SGOT?(Unit/L) ? 16 ??ALT/SGPT?(Unit/L) ? 8?L ??ALKALINE?PHOSPHATASE?(Unit/L) ? 49 ??BILIRUBIN,?TOTAL?(mg/dL) ? 0.8 ??PROTEIN?TOTAL?(gm/dl) ? 6.4 ??ALBUMIN,?SERUM?(gm/dl) ? 4.3 ??GLOBULIN?(gm/dl) ? 2.1?L ??ALBUMIN/GLOBULIN?RATIO ? 2.0 ??CALCIUM,?SERUM?(mg/dL) ? 9.2 ??CALCIUM?SERUM?(CORRECTED)?(mg/dL) ? 9.2 ??CEA?(O*)?(ng/ml) 3.5 ? ASSESSMENT/PLAN:?[facility] Cope Assessment/Plan? 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 S/p right upper lobe lobectomy on 09/04/2020. 05/30/[address] scan had shown multiple hypermetabolic areas in the liver which may be technical, recommend CT scan abdomen pelvis post intravenous contrast with specific attention to the liver. CT scan 06/26/2024 reviewed and showed no liver lesions. Common bile duct 15 mm. Patient have a history of gallbladder removal. No clinical signs or symptoms Patient is doing clinically well CT scan 6 mm pulm nodule in the right upper lobe and recommendation is to do it in 6 months that is in March 2025 COPD. Stopped smoking in 2002. CT scan on 03/21/2025 is stable and no new metastatic disease ? Coronary artery disease status post coronary artery stent placement x2. ? History of papillary urothelial carcinoma treated with TURBT as well as BCG. ? History of right shoulder surgery in the past. Currently patient is planning on having repeat surgery. 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 We also discussed the option of no treatment and the possibility of clinical trial participation, if applicable. All questions were addressed, and they demonstrated understanding. They provided informed consent to proceed with the proposed plan of care. BILLING AND COMPLIANCE: I reviewed external records from providers outside my specialty as summarized above. I spent a total of 50 minutes on this patient?s care on the day of their visit excluding time spent related to any billed procedures. This time includes time spent with the patient as well as time spent documenting in the medical record, reviewing patients records and tests, obtaining history, placing orders, communicating with other healthcare professionals, counseling the patient, family or caregiver, and/or care coordination for the diagnoses above. Electronically Signed by: Jake Cope MD T: 9:37 PM CC: PCP: Andrés Barber Referring: Andrés Barber This document was completed utilizing speech recognition software. Grammatical errors, random word insertions, pronoun errors, and incomplete sentences are an occasional consequence of this system due to software limitations, ambient noise, and hardware issues. Any formal questions or concerns about the content, text or information contained within the body of this dictation should be directly addressed to the provider for clarification.
== END 2025-06-22 23:59 | disposition home or self-care (01) ==
LOC: SCTC 11:22
PROVIDERS: PCP Physician Assistant; Referring Provider Physician Assistant; Visit Provider Internal Medicine Hematology & Oncology
DX: C34.11 Malignant neoplasm of upper lobe, right bronchus or lung (principal); Z90.2 Acquired absence of lung [part of]; R91.1 Solitary pulmonary nodule; J44.9 Chronic obstructive pulmonary disease, unspecified; I25.10 Atherosclerotic heart disease of native coronary artery without angina pectoris; Z95.5 Presence of coronary angioplasty implant and graft; Z85.51 Personal history of malignant neoplasm of bladder; D64.9 Anemia, unspecified
CPT/HCPCS: 99212; G0463